=== PATIENT | female | born 1965 | race Caucasian/White ===

== ENCOUNTER 2021-07-04 12:43 | Emergency (ER) | payer BC, SELFPAY ==
--- NOTE | ~2021-07-04 | XR_ITS ---
EXAMINATION: XR ankle RT min 3V INDICATION: Right ankle pain TECHNIQUE: Four views of the right ankle are obtained. COMPARISON: None available FINDINGS: There is soft tissue swelling of the ankle. No definite fracture is identified. Bone alignm ent is normal. A plantar calcaneal enthesophyte is noted. IMPRESSION: 1. Ankle soft tissue swelling without acute osseous abnormality identified. Reviewed, dictated and finalized at location B. [employer]
[2021-07-04 12:51] VITALS: BP 128/78; PULSE 105; RESP 16; TEMP 36.5; O2SAT 98
--- NOTE | 2021-07-04 13:05 | ED.LOWEXIN ---
HPI - Extremity Injury (Lower) General Chief Complaint: Extremity Injury, Lower Stated Complaint: Right ankle pain Time Seen by Provider: 07/04/21 13:05 Source: patient, RN notes reviewed and old records reviewed Mode of arrival: ambulatory Limitations: no limitations History of Present Illness HPI Narrative: 56 year old female presents to [facility] care with complaints of walking across the floor and tripping on Thursday evening and twisted her right ankle and went down onto her left knee. Patient denies any pain to her left knee, denies any LOC or hitting her head but has swelling and pain to the lateral aspect of her right ankle with increase pain with weight bearing.Patient has been taking Tylenol for her discomfort and using intermittent ice to her right ankle, she does take Meloxicam daily for arthritis and state she is not suppose to take any additional Aleve or Ibuprofen for pain. Patient has palpable pulse to right foot with no tingling or numbness. MD complaint: ankle injury Onset (ago): day(s) (2 days ago) Related Data Home Medications Medication Instructions Recorded Confirmed atorvastatin 07/04/21 buspirone mg 07/04/21 meloxicam 07/04/21 Allergies Allergy/AdvReac Type Severity Reaction Status Date / Time sulfamethoxazole Allergy Rash Verified 07/04/21 12:52 [From ] trimethoprim [From ] Allergy Rash Verified 07/04/21 12:52 Review of Systems Review of Systems: CONSTITUTIONAL: Denies fever, chills, or sweats. EYES: Denies visual changes, redness, or discharge. ENT: Denies rhinorrhea, congestion, sore throat, or otalgia. CARDIOVASCULAR: Denies chest pain, palpitations, or edema. RESPIRATORY: Denies cough or dyspnea. GASTROINTESTINAL: Denies abdominal pain, nausea, vomiting, or diarrhea. GENITOURINARY: Denies dysuria or hematuria. SKIN: Denies rash or itching. MUSCULOSKELETAL: Denies back pain, pain and swelling to the lateral aspect of right ankle joint, or myalgia. NEUROLOGIC: Denies headache, numbness, or weakness. PSYCHIATRIC: Positive history of anxiety or depression. All systems reviewed & are unremarkable except as noted in HPI and below PMFSH Past Medical History Medical History (Updated 07/04/21 @ 13:54 by Allison Ashraf NP) Anxiety with depression Arthritis Elevated cholesterol Surgical History Surgical History (Updated 07/04/21 @ 13:54 by Allison Ashraf NP) H/O tubal ligation History of neck surgery C3-6 with hardware Social History Social History (Updated 07/04/21 @ 13:52 by Allison Ashraf NP) Smoking packs per day: 1 Smoking cigarettes per day: 20.0 Years smoked: 30 Smoking pack-years: 30.00 Smoking status: Former smoker Tobacco type: cigarettes Additional smoking assessment comments: Quit November 25 2019 Alcohol intake: current Alcohol use details: social Substance use type: does not use Living arrangements: with family Gender identity (if verbalized by the patient): Female Comments At time of signature, agree with nursing past medical, surgical, social and family history. There is no relevant family history pertinent to the presenting complaint Exam Narrative: GENERAL: Well-appearing, well-nourished, and in no acute distress. HEAD: Normocephalic, atraumatic. EYES: PERRLA and EOMI. ENT: Nares clear, no rhinorrhea or epistaxis. Mucous membranes moist. TMs normal with good light reflex throat pink with no lesions or exudates no tonsillar swelling NECK: Supple. No lymphadenopathy CHEST: Clear to auscultation. No respiratory distress. SaO2 98% on room air HEART: Regular rate and rhythm. No murmur heard. Normal peripheral pulses. ABDOMEN: Soft, nontender, nondistended, normal active bowel sounds. EXTREMITIES: Normal range of motion. No edema, Exception noted to right lateral ankle which has noted swelling and pain, increase pain with ambulation and movement of ankle. Circulation and sensation is intact, mobility impaired due to
== END 2021-07-04 13:33 | disposition home or self-care (01) ==
PROVIDERS: Emergency Provider Registered Nurse; PCP Internal Medicine
DX: S93.401A Sprain of unspecified ligament of right ankle, initial encounter (principal); S96.911A Strain of unspecified muscle and tendon at ankle and foot level, right foot, initial encounter; W01.0XXA Fall on same level from slipping, tripping and stumbling without subsequent striking against object, initial encounter; Z87.891 Personal history of nicotine dependence; M19.90 Unspecified osteoarthritis, unspecified site; E78.00 Pure hypercholesterolemia, unspecified; F41.9 Anxiety disorder, unspecified
CPT/HCPCS: 73610; 99203; G0463

== ENCOUNTER 2024-11-09 08:58 | Outpatient (CLI) | payer BC, SELFPAY ==
--- NOTE | ~2024-11-09 | MR_ITS ---
MRI of the lumbar spine Clinical History: Back strain Technique: Axial T2-weighted images, and sagittal T1-weighted, T2-weighted, and T2 fat-sat images wer e acquired. Findings: No acute fracture seen. There is 8 mm anterolisthesis of L4 over L5. There is 3 mm retrolis thesis of L5 over S1. There is 3 mm retrolisthesis of L2 over L3. No suspicious bone marrow signal ab normality seen. There are Modic signal changes in the lumbar spine. At L1-L2, there is advanced degenerative disc narrowing. There is mild disc bulge with moderate facet arthropathy. No central canal stenosis. There is severe right neural foraminal narrowing, and modera te left neural foraminal narrowing. At L2-L3, there is severe degenerative disc narrowing. There is mild disc bulge with moderate facet a rthropathy. No central canal stenosis. There is severe bilateral neural foraminal narrowing. At L3-L4, there is advanced degenerative disc narrowing. There is mild disc bulge with moderate to ad vanced facet arthropathy. No central canal stenosis. There is moderate bilateral neural foraminal braydon rowing. At L4-L5, there is severe degenerative disc narrowing. There is disc bulge/uncovering with severe fac et arthropathy, resulting in severe spinal canal stenosis/thecal sac compression. There is severe lef t neural foraminal narrowing. There is mild right neural foraminal narrowing. At L5-S1, there is advanced degenerative disc narrowing. There is disc bulge with moderate facet arth ropathy. No central canal stenosis. There is moderate to severe left neural foraminal narrowing, and moderate right neural foraminal narrowing. Paravertebral soft tissues are unremarkable. Impression: Severe degenerative spondylosis throughout the lumbar spine, worst at L4-L5. There is 8 mm anterolist hesis of L4 over L5. 3 mm retrolisthesis of L2 over L3, and of L5 over S1. Reviewed, dictated and finalized at location . Impression: Severe degenerative spondylosis throughout the lumbar spine, worst at L4-L5. Th ere is 8 mm anterolisthesis of L4 over L5. 3 mm retrolisthesis of L2 over L3, and of L5 over S1.
== END 2024-11-09 08:59 | disposition home or self-care (01) ==
PROVIDERS: PCP Internal Medicine; Visit Provider Internal Medicine
DX: M47.816 Spondylosis without myelopathy or radiculopathy, lumbar region (principal); M43.16 Spondylolisthesis, lumbar region; M43.17 Spondylolisthesis, lumbosacral region; S39.012A Strain of muscle, fascia and tendon of lower back, initial encounter
CPT/HCPCS: 72148